=== PATIENT | male | born 1970 | race Caucasian/White ===

== ENCOUNTER 2019-04-10 06:50 | Day surgery (SDC) | payer BC ==
[~2019-04-10 06:50] MED LIST: Lactated Ringers 1,000 ML IV SCH
[2019-04-10] MEDS ORDERED: Propofol 200 MG/20 ML SDV ONE (07:17)
[2019-04-10] MEDS ORDERED: Midazolam 1 MG/ML 2 ML SDV ONE (07:17)
--- NOTE | 2019-04-10 07:25 | PCM.PREANE ---
Preanesthetic Assessment - Anesthesia/Transfusion/Family Hx Anesthesia History: Prior Anesthesia Without Reaction Family History of Anesthesia Reaction: No Transfusion History: No Prior Transfusion(s) Intubation History: Unknown - Review of Systems General: No Symptoms Pulmonary: No Symptoms Cardiovascular: No Symptoms Gastrointestinal: Diarrhea, Other (f/h colon cancer) Neurological: No Symptoms Other: Reports: None - Physical Assessment Vital Signs: Last Vital Signs Temp 36.5 C 04/10/19 07:00 Pulse 68 04/10/19 07:00 Resp 16 04/10/19 07:00 BP 123/77 04/10/19 07:00 Pulse Ox 96 04/10/19 07:00 Height: 5 ft 10 in Weight: 117.934 kg ASA Class: 2 Mental Status: Alert & Oriented x3 Airway Class: Mallampati = 3 Dentition: Reports: Normal Dentition Thyro-Mental Finger Breadths: 3 Mouth Opening Finger Breadths: 3 ROM/Head Extension: Full Lungs: Clear to Auscultation, Normal Respiratory Effort Cardiovascular: Regular Rate, Regular Rhythm - Allergies Allergies/Adverse Reactions: Allergies Allergy/AdvReac Type Severity Reaction Status Date / Time enviromental allergies Allergy allergy Uncoded 04/07/19 10:38 testing - Blood Blood Available: No - Anesthesia Plan Pre-Op Medication Ordered: None - Acknowledgements Anesthesia Type Planned: MAC Pt an Appropriate Candidate for the Planned Anesthesia: Yes Alternatives and Risks of Anesthesia Discussed w Pt/Guardian: Yes Pt/Guardian Understands and Agrees with Anesthesia Plan: Yes PreAnesthesia Questionnaire HEENT History: Reports: Other (See Below) Other HEENT History: wears glasses/contacts Cardiovascular History: Reports: None Respiratory History: Reports: Sleep Apnea Other Respiratory History: uses CPAP Gastrointestinal History: Reports: Chronic Diarrhea Genitourinary History: Reports: None Musculoskeletal History: Reports: Fracture Other Musculoskeletal History: hx fx ankle and arm Neurological History: Reports: None Psychiatric History: Reports: None Endocrine/Metabolic History: Reports: Obesity/BMI 30+ (BMI 37.3) Hematologic History: Reports: None Immunologic History: Reports: None Oncologic (Cancer) History: Reports: None Dermatologic History: Reports: Other (See Below) Other Dermatologic History: contact dermatitis to hands - Past Surgical History Head Surgeries/Procedures: Reports: None HEENT Surgical History: Reports: None Cardiovascular Surgical History: Reports: None Respiratory Surgical History: Reports: None GI Surgical History: Reports: None Male Surgical History: Reports: None Endocrine Surgical History: Reports: None Neurological Surgical History: Reports: Lumbar Spine Other Neurological Surgeries/Procedures: hx back surgery Musculoskeletal Surgical History: Reports: None Oncologic Surgical History: Reports: None Dermatological Surgical History: Reports: None - SUBSTANCE USE Smoking Status *Q: Former Smoker Tobacco Use Within Last Twelve Months: Other (See Below) (smokes e-cigarettes) - HOME MEDS Home Medications: Home Meds Betamethasone Dipropionate [Diprosone 0.05% Crm] 1 applic TOP BID 04/07/19 [ History] Ergocalciferol (Vitamin D2) [Vitamin D2] 50,000 units PO WEEKLY 04/07/19 [ History] - CURRENT (IN HOUSE) MEDS Current Meds: Current Medications Lactated Ringer's (Ringers, Lactated) 1,000 mls @ 125 mls/hr IV [facility] Last Admin: 04/10/19 07:21 Dose: 125 mls/hr Discontinued Medications Midazolam HCl (Versed 1 Mg/Ml) Confirm Administered Dose 2 mg .ROUTE .STK-MED ONE Stop: 04/10/19 07:18 Propofol (Diprivan 20 Ml) Confirm Administered Dose 400 mg .ROUTE .STK-MED ONE Stop: 04/10/19 07:18
--- NOTE | 2019-04-10 08:16 | PCM.OPNOTE ---
- General Post-Op/Procedure Note Date of Surgery/Procedure: 04/10/19 Operative Procedure(s): colonoscopy Findings: see [id number] Pre Op Diagnosis: change in bowel habits, inc diarrhea Post-Op Diagnosis: diverticulosis Anesthesia Technique: Moderate Sedation Primary Surgeon: Bishnu Edmondson Complications: None Condition: Good
--- NOTE | 2019-04-10 09:10 | PCM48HPAN ---
Post Anesthesia Note - EVALUATION WITHIN 48HRS OF ANESTHETIC Vital Signs in Normal Range: Yes Patient Participated in Evaluation: Yes Respiratory Function Stable: Yes Airway Patent: Yes Cardiovascular Function Stable: Yes Hydration Status Stable: Yes Pain Control Satisfactory: Yes Nausea and Vomiting Control Satisfactory: Yes Mental Status Recovered: Yes Vital Signs: Last Vital Signs Temp 35.9 C 04/10/19 08:10 Pulse 55 L 04/10/19 08:30 Resp 15 04/10/19 08:30 BP 117/58 L 04/10/19 08:30 Pulse Ox 95 04/10/19 08:30 - COMMENTS/OBSERVATIONS Free Text/Narrative:: no anesthesia problems
--- NOTE | 2019-04-10 09:11 | PCM.POSTAN ---
POST ANESTHESIA ASSESSMENT - MENTAL STATUS Mental Status: Alert, Oriented - VITAL SIGNS Vital Signs: Last Vital Signs Temp 35.9 C 04/10/19 08:10 Pulse 55 L 04/10/19 08:30 Resp 15 04/10/19 08:30 BP 117/58 L 04/10/19 08:30 Pulse Ox 95 04/10/19 08:30 - RESPIRATORY Respiratory Status: Respiratory Rate WNL, Airway Patent, O2 Saturation Stable - CARDIOVASCULAR CV Status: Pulse Rate WNL, Blood Pressure Stable - GASTROINTESTINAL GI Status: No Symptoms - PAIN Pain Score: 0 - POST OP HYDRATION Hydration Status: Adequate & Stable - OBSERVATIONS Free Text/Narrative:: no anesthesia problems
--- NOTE | 2019-04-10 11:06 | OR ---
SURGEON: Bishnu Edmondson MD DATE OF PROCEDURE: 04/10/2019 PREOPERATIVE DIAGNOSES: Change in bowel habit, increased diarrhea. POSTOPERATIVE DIAGNOSIS: Diverticulosis. PROCEDURE IN DETAIL: Colonoscopy. DESCRIPTION OF PROCEDURE: The patient was taken to the endoscopy room. A time out was called, patient identified, and procedure identified. Diprivan was then administrated. Patient went from awake to sleep, hearing doctor talking or door closing is normal. Perineum inspection and digital examination were then performed. A well- lubricated colonoscope was gently inserted through the rectum, advanced past the rectosigmoid junction, the descending colon, splenic flexure, transverse colon, hepatic flexure, ascending colon, arrived to the cecum. Cecum was identified as dictated in the finding. Then the scope was carefully withdrawn while attention was paid to the mucosal surface for any abnormality. Air will be sucked out during the scope withdrawal. At the rectum, retroflexed to examine any rectal diseases, fistula or hemorrhoids. Patient tolerated procedure well. There were no intraoperative complications, and Dr. Edmondson was present throughout the whole procedure. FINDINGS: 1. The patient is easily sedated with CLINICAL REVIEWER and Diprivan, the patient is soundly snoring. 2. Colon is rather straightforward. Cecum indicated by ileocecal fold, one-to- one indentation, and appendiceal orifice. ScopeGuide is pointing south. Light emittance is not observed. Mucosa examined upon scope pulling out with lots of irrigation. The patient's bowel prep is in fact pretty good and excellent, however, there was so much bubble that interfered with the examination, requiring constant irrigation. Fortunately, bubbles dispersed with irrigation. The patient has some mild diverticulosis on the left colon. No signs or symptoms of diverticulitis and no polyp, mass, growth, inflammation, stricture, AV malformation, bleeding, none of those. The patient has minimal internal hemorrhoid, no external hemorrhoid. The patient would benefit from repeat colonoscopy in 10 years from today or if clinically indicated otherwise. ARTIE / SID /[id number]
== END 2019-04-10 09:15 | disposition home or self-care (01) ==
LOC: MW.SDS 06:50
PROVIDERS: ATTEND Surgery
DX: R19.5 Other fecal abnormalities (principal); R19.7 Diarrhea, unspecified; K57.30 Diverticulosis of large intestine without perforation or abscess without bleeding; K64.8 Other hemorrhoids; G47.33 Obstructive sleep apnea (adult) (pediatric); E55.9 Vitamin D deficiency, unspecified; F17.210 Nicotine dependence, cigarettes, uncomplicated; E66.9 Obesity, unspecified; Z68.37 Body mass index [BMI] 37.0-37.9, adult; Z80.0 Family history of malignant neoplasm of digestive organs; Z91.09 Other allergy status, other than to drugs and biological substances
CPT/HCPCS: 45378; J2250; J2704; J7120

== ENCOUNTER 2021-05-11 17:35 | Emergency (ER) | payer BC ==
--- NOTE | 2021-05-11 19:14 | CR ---
INDICATION: Dropped heavy object on lower leg TECHNIQUE: Tibia-fibula radiograph 2 views left on 3 films COMPARISON: None FINDINGS: Bone: No acute fractures or aggressive bone lesions are identified. Joint: The visualized knee and ankle joints are unremarkable. No significant joint effusion is seen. Soft tissue: Unremarkable. No radiopaque foreign bodies are seen. IMPRESSION: 1. No acute osseous injuries or abnormalities are noted. Dictated by: Ricardo Hilton MD @ 05/11/2021 19:13:30 (Electronically Signed)
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
[2021-05-11] MEDS ORDERED: Ketorolac 60 MG/2 ML SDV IM ONE (19:33)
== END 2021-05-11 22:07 | disposition home or self-care (01) ==
LOC: MW.ED 17:35
DX: S80.12XA Contusion of left lower leg, initial encounter (principal); E66.9 Obesity, unspecified; Z68.35 Body mass index [BMI] 35.0-35.9, adult; Z91.048 Other nonmedicinal substance allergy status; Z72.0 Tobacco use; W20.8XXA Other cause of strike by thrown, projected or falling object, initial encounter
CPT/HCPCS: 73590; 96372; 99283; J1885

== ENCOUNTER 2022-07-24 12:44 | Inpatient (IN) | payer OTHER ==
[2022-07-24] MEDS ORDERED: Piperacillin/Tazobactam 4.5 GM in Sodium Chloride 0.9% 100 ML IV ONE (13:10)
[2022-07-24] MEDS ORDERED: Sodium Chloride 0.9% 1,000 ML IV ONE (13:10)
[2022-07-24] MEDS ORDERED: fentaNYL 50 MCG/ML SDV IVPUSH ONE (14:39)
[2022-07-24 15:13] LABS: CORONAVIRUS COVID-19 NAA NEGATIVE (NEGATIVE); INFLUENZA A NAA NEGATIVE (NEGATIVE); INFLUENZA B NAA NEGATIVE (NEGATIVE)
[2022-07-24] MEDS ORDERED: Morphine 2 MG/ML SYRINGE IVPUSH PRN (17:25)
[2022-07-24] MEDS ORDERED: Albuterol/Ipratropium 3.0-0.5 MG/3 ML Neb Soln NEB PRN (17:25)
[2022-07-24] MEDS ORDERED: Ondansetron 4 MG/2 ML SDV IVPUSH PRN (17:25)
[2022-07-24] MEDS ORDERED: Acetaminophen 325 MG Tab PO PRN (17:37)
[2022-07-24] MEDS: Lactated Ringers 1,000 ML IV SCH (18:26)
[2022-07-24] MEDS: Piperacillin/Tazobactam 4.5 GM in Sodium Chloride 0.9% 100 ML IV SCH (20:13)
[2022-07-24] MEDS: Morphine 4 MG/ML Syringe IVPUSH PRN (22:02)
[2022-07-25] MEDS: Piperacillin/Tazobactam 4.5 GM in Sodium Chloride 0.9% 100 ML IV SCH ×4 (01:51→20:04)
[2022-07-25] MEDS: Morphine 4 MG/ML Syringe IVPUSH PRN ×3 (01:52→11:22)
[2022-07-25 08:43] LABS: CARBON DIOXIDE,CO2 26.3 mmol/L (21.0-32.0); POTASSIUM,K 3.5 mmol/L (3.5-5.1)
[2022-07-25] MEDS: Lactated Ringers 1,000 ML IV SCH (16:41)
[2022-07-26] MEDS: Lactated Ringers 1,000 ML IV SCH (01:32)
[2022-07-26] MEDS: Piperacillin/Tazobactam 4.5 GM in Sodium Chloride 0.9% 100 ML IV SCH ×4 (01:32→20:08)
[2022-07-26 08:24] LABS: CARBON DIOXIDE,CO2 25.1 mmol/L (21.0-32.0); POTASSIUM,K 3.3 mmol/L (3.5-5.1)
[2022-07-26] MEDS ORDERED: Acetaminophen 325 MG Tab PO PRN (08:38)
[2022-07-26] MEDS: Potassium Chloride 100 ML IV SCH ×2 (09:22→11:09)
[2022-07-27] MEDS: Piperacillin/Tazobactam 4.5 GM in Sodium Chloride 0.9% 100 ML IV SCH ×2 (01:54→08:00)
[2022-07-27 06:00] LABS: CARBON DIOXIDE,CO2 28.3 mmol/L (21.0-32.0); POTASSIUM,K 3.5 mmol/L (3.5-5.1)
== END 2022-07-27 09:30 | disposition home or self-care (01) | DRG 392 ==
LOC: MW.ED 12:44 → MW.MS 15:51
PROVIDERS: ADMIT Internal Medicine; ATTEND Internal Medicine
DX: K57.20 Diverticulitis of large intestine with perforation and abscess without bleeding (principal); Z20.822 Contact with and (suspected) exposure to COVID-19; H54.7 Unspecified visual loss; G47.30 Sleep apnea, unspecified; K52.9 Noninfective gastroenteritis and colitis, unspecified; E66.9 Obesity, unspecified; F17.210 Nicotine dependence, cigarettes, uncomplicated; K76.0 Fatty (change of) liver, not elsewhere classified; Z88.8 Allergy status to other drugs, medicaments and biological substances; Z68.31 Body mass index [BMI] 31.0-31.9, adult
CPT/HCPCS: 0240U; 36415; 80053; 82947; 83605; 83690; 83735; 84100; 85025; 96365; 96375; 99284-25; J2270; J2543; J3010; J3480; J7030; J7120

== ENCOUNTER 2022-08-16 09:56 | Inpatient (IN) | payer OTHER ==
[2022-08-16] MEDS ORDERED: HYDROmorphone 1 MG/ML Syringe IVPUSH ONE ×2 (10:08→10:39)
[2022-08-16] MEDS ORDERED: Sodium Chloride 0.9% 1,000 ML IV ONE ×2 (10:08→10:09)
[2022-08-16] MEDS ORDERED: Ondansetron 4 MG/2 ML SDV IVPUSH ONE (10:08)
[2022-08-16 10:46] LABS: CARBON DIOXIDE,CO2 24.9 mmol/L (21.0-32.0)
[2022-08-16] MEDS ORDERED: Ketorolac 30 MG/ML SDV IVPUSH ONE (11:02)
[2022-08-16 11:04] LABS: CORONAVIRUS COVID-19 NAA NEGATIVE (NEGATIVE); INFLUENZA A NAA NEGATIVE (NEGATIVE); INFLUENZA B NAA NEGATIVE (NEGATIVE)
[2022-08-16] MEDS ORDERED: Piperacillin/Tazobactam 3.375 GM in Sodium Chloride 0.9% 50 ML IV ONE (12:31)
[2022-08-16] MEDS ORDERED: Sodium Chloride 0.9% 10 ML Syringe FLUSH PRN (13:48)
[2022-08-16] MEDS ORDERED: Sodium Chloride 0.9% 2.5 ML Syringe FLUSH PRN (13:48)
[2022-08-16] MEDS ORDERED: Ondansetron 4 MG/2 ML SDV IVPUSH PRN (13:50)
[2022-08-16] MEDS ORDERED: Enoxaparin 40 MG/0.4 ML Syringe SUBCUT SCH (14:00)
[2022-08-16] MEDS: Morphine 2 MG/ML SYRINGE IVPUSH PRN ×2 (15:21→21:11)
[2022-08-16] MEDS: Lactated Ringers 1,000 ML IV SCH ×3 (15:28→22:00)
[2022-08-16] MEDS: Ketorolac 30 MG/ML SDV IM PRN (17:07)
[2022-08-16] MEDS: Piperacillin/Tazobactam 3.375 GM in Sodium Chloride 0.9% 50 ML IV SCH (18:16)
[2022-08-17] MEDS ORDERED: Acetaminophen 325 MG Tab PO PRN (00:12)
[2022-08-17] MEDS: Piperacillin/Tazobactam 3.375 GM in Sodium Chloride 0.9% 50 ML IV SCH ×4 (00:25→18:50)
[2022-08-17] MEDS: Lactated Ringers 1,000 ML IV SCH ×4 (04:35→23:01)
[2022-08-17] MEDS: Morphine 2 MG/ML SYRINGE IVPUSH PRN (04:43)
[2022-08-17] MEDS: Ketorolac 30 MG/ML SDV IM PRN (04:55)
[2022-08-17 06:08] LABS: CARBON DIOXIDE,CO2 25.7 mmol/L (21.0-32.0); POTASSIUM,K 3.7 mmol/L (3.5-5.1)
[2022-08-17] MEDS ORDERED: Magnesium Sulfate/Water 2 GM in Premix Bag 1 BAG IV ONE (08:15)
[2022-08-17] MEDS ORDERED: Potassium Chloride 20 MEQ in Premix Bag 1 BAG IV ONE (08:15)
[2022-08-17] MEDS: HYDROmorphone 1 MG/ML Syringe IVPUSH PRN ×4 (08:35→18:45)
[2022-08-18] MEDS: Lactated Ringers 1,000 ML IV SCH ×4 (00:44→15:11)
[2022-08-18] MEDS: Piperacillin/Tazobactam 3.375 GM in Sodium Chloride 0.9% 50 ML IV SCH ×3 (00:44→12:19)
[2022-08-18] MEDS: HYDROmorphone 1 MG/ML Syringe IVPUSH PRN ×4 (00:45→15:03)
[2022-08-18 06:54] LABS: CARBON DIOXIDE,CO2 27.7 mmol/L (21.0-32.0); POTASSIUM,K 4.3 mmol/L (3.5-5.1)
[2022-08-18] MEDS ORDERED: Ketorolac 30 MG/ML SDV IVPUSH SCH (11:15)
[2022-08-18] MEDS ORDERED: Acetaminophen 325 MG Tab PO SCH (11:15)
[2022-08-18] MEDS ORDERED: Iopamidol 755 Mg/ML 100 ML Bottle IVPUSH ONE (11:49)
[2022-08-18] MEDS ORDERED: Cyclobenzaprine 10 MG Tab PO SCH (14:00)
== END 2022-08-18 15:45 | DRG 392 ==
LOC: MW.ED 09:56 → MW.MS 13:32
PROVIDERS: ADMIT Internal Medicine; ATTEND Internal Medicine
DX: K57.20 Diverticulitis of large intestine with perforation and abscess without bleeding (principal); H54.7 Unspecified visual loss; G47.30 Sleep apnea, unspecified; K52.9 Noninfective gastroenteritis and colitis, unspecified; E66.9 Obesity, unspecified; Z20.822 Contact with and (suspected) exposure to COVID-19; Z86.16 Personal history of COVID-19; Z88.8 Allergy status to other drugs, medicaments and biological substances; Z86.19 Personal history of other infectious and parasitic diseases; Z87.891 Personal history of nicotine dependence; Z68.36 Body mass index [BMI] 36.0-36.9, adult
CPT/HCPCS: 0240U; 36415; 74177; 74177-26; 80048; 80053; 81001; 83605; 83690; 83735; 84100; 85025; 96361; 96365; 96375; 99285-25; A9270-GY; J1170; J1650; J1885; J2270; J2405; J2543; J3475; J3480; J7030; J7050; J7120; Q9967